=== PATIENT | female | born 1960 | race Caucasian/White ===

== ENCOUNTER 2017-12-08 06:32 | Emergency (ER) | payer MEDICAID ==
[~2017-12-08] VITALS: Ht 154.9 cm; Wt 60.0 kg
[~2017-12-08 06:32] MED LIST: METF500T4 PO; METH5TAB7 PO; VICOT PO
[2017-12-08 06:48] LABS: GLUCOSE,POINT OF CARE 116 MG/DL (70-110)
[2017-12-08 07:47] LABS: BASOPHILS % (AUTO) 0.2 % (0.0-2.0); EOSINOPHILS % (AUTO) 1.3 % (1.0-6.0); HEMATOCRIT 44.6 % (36-46); HEMOGLOBIN 15.6 g/dL (12.0-16.0); LYMPHOCYTES # (AUTO) 1.6 K/uL (1.0-4.8); LYMPHOCYTES % (AUTO) 29.3 % (22.0-44.0); MEAN CORPUSCULAR VOLUME 89 fL (80-100); MONOCYTES # (AUTO) 0.3 K/uL (0.1-1.0); MONOCYTES % (AUTO) 6.4 % (2.0-9.0); NEUTROPHILS # (AUTO) 3.4 K/uL (1.8-7.7); NEUTROPHILS % (AUTO) 62.8 % (40.0-70.0); PLATELET COUNT (AUTO) 247 K/uL (150-450); RED BLOOD CELL COUNT(AUTO) 5.03 MIL/uL (4.00-5.20); RED CELL DISTRIBUTION WIDTH 13.5 % (11.5-14.5)
[2017-12-08 07:57] LABS: INR 0.9 (0.9-1.1); PROTHROMBIN TIME 9.8 SEC (9.4-11.6)
[2017-12-08 07:58] LABS: ANION GAP 8 mmol/L (8-16); CALCIUM, TOTAL 9.1 mg/dL (8.8-10.5); CARBON DIOXIDE 28 mmol/L (22-29); CHLORIDE 105 mmol/L (98-107); CREATININE 0.56 mg/dL (0.60-1.30); GLOMERULAR FILTR. RATE CALC > 60 mL/min (>60); GLUCOSE,RANDOM 160 mg/dL (70-110); POTASSIUM 3.4 mmol/L (3.5-5.1); SODIUM SERUM 141 mmol/L (136-145); UREA NITROGEN, BLOOD 16 mg/dL (7-18)
[2017-12-08 08:04] LABS: ALANINE AMINOTRANSFERASE 33 U/L (12-78); ALBUMIN 3.9 g/dL (3.4-5.0); ALKALINE PHOSPHATASE 107 U/L (46-116); ASPARTATE AMINOTRANSFERASE 21 U/L (15-37); BILIRUBIN,TOTAL 0.4 mg/dL (0.1-1.0); TOTAL PROTEIN, SERUM 7.9 g/dL (6.4-8.2)
[2017-12-08 08:14] LABS: B-TYPE NATRIURETIC PEPTIDE 35 pg/mL (0-100)
[2017-12-08 08:14] LABS: BILIRUBIN,URINE NEGATIVE (NEGATIVE); GLUCOSE, URINE (UA) NEGATIVE (NEGATIVE); KETONES,URINE NEGATIVE (NEGATIVE); LEUKOCYTE ESTERASE ,URINE NEGATIVE (NEGATIVE); NITRATE,URINE NEGATIVE (NEGATIVE); OCCULT BLOOD,URINE TRACE (NEGATIVE); PH,URINE 6.5 (5.0-8.0); PROTEIN,URINE NEGATIVE (NEGATIVE); UROBILINOGEN,URINE 0.2 mg/dL (<=1.0)
[2017-12-08 08:20] LABS: APPEARANCE,URINE HAZY (CLEAR)
[2017-12-08 08:21] LABS: BACTERIA,URINE Rare /HPF (None Seen); RBC,URINE 0-2 /HPF (0-2); SQUAMOUS EPITHELIAL CELL,UR Rare /LPF (None Seen); WBC,URINE None Seen /HPF (0-5)
[2017-12-08] MEDS ORDERED: SODIUM CHLORIDE 0.9% 1,000 ML IV ONE (08:45)
[2017-12-08] MEDS ORDERED: MECLIZINE HCL 25 MG TABLET PO ONE (08:45)
[2017-12-08 12:12] VITALS: BP 150/68
== END 2017-12-08 12:23 | disposition home or self-care (01) ==
LOC: EMS 06:32
DX: R42 Dizziness and giddiness (principal); E05.90 Thyrotoxicosis, unspecified without thyrotoxic crisis or storm
CPT/HCPCS: 36415; 71045; 80053; 81001; 82962; 83880; 84484; 85025; 85610; 85730; 93005; 99285; J7030

== ENCOUNTER 2020-12-21 09:52 | Emergency (ER) | payer MEDICAID ==
[~2020-12-21] VITALS: Ht 162.6 cm; Wt 59.1 kg
[~2020-12-21 09:52] MED LIST changes: -METF500T4 PO; -METH5TAB7 PO; +METHI5 PO; -VICOT PO
[2020-12-21] MEDS ORDERED: POVIDONE-IODINE 10% 15 ML SOLUTION UD TP ONE (11:45)
[2020-12-21] MEDS ORDERED: LIDOCAINE 1% 10 ML VIAL IARTIC ONE (11:45)
[2020-12-21 12:58] LABS: SPECIMENTYPE,BODY FLUID SYNOVIAL
[2020-12-21] MEDS ORDERED: NAPROXEN 250 MG TABLET PO ONE (13:45)
[2020-12-21 13:56] LABS: APPEARANCE,UNSPUN,BODY FLUID CLOUDY (CLEAR)
[2020-12-21 13:57] LABS: APPEARANCE,SPUN,BODY FLUID HAZY (CLEAR); COLOR,BODY FLUID PINK (LT YELLOW); TOTAL VOLUME,BODY FLUID 30 mL
[2020-12-21 14:12] LABS: WBC, BODY FLUID 1825 /cu. mm.
[2020-12-21 14:13] LABS: BASOPHILS,BODY FLUID 0 %; EOSINOPHILS,BF (ANAL) 0 %; LYMPHOCYTES,BODY FLUID 13 %; MONOCYTES,BODY FLUID 6 %; NEUTROPHILS,BODY FLUID 81 %
[2020-12-21 14:16] LABS: OTHER CELLS,BODY FLUID 0
[2020-12-21 14:21] LABS: CRYSTALS, SYNOVIAL FLUID None Seen (None Seen)
[2020-12-21 14:27] VITALS: BP 129/68
== END 2020-12-21 14:50 | disposition home or self-care (01) ==
LOC: EMS 10:10
DX: M13.861 Other specified arthritis, right knee (principal); M25.461 Effusion, right knee
CPT/HCPCS: 20610; 73562; 82945; 84157; 84560; 87070; 87205; 89051; 89060; 99285; J3490

== ENCOUNTER 2022-07-31 10:18 | Emergency (ER) | payer MEDICAID, OTHER ==
[~2022-07-31] VITALS: Ht 157.5 cm; Wt 56.4 kg
[2022-07-31] MEDS ORDERED: LIDOCAINE 1% 10 ML VIAL SQ ONE (12:45)
[2022-07-31] MEDS ORDERED: HYDROmorphone HCL 2 MG/ML SYRINGE IM ONE (12:45)
[2022-07-31] MEDS ORDERED: ONDANSETRON HCL 4 MG/2 ML VIAL IM ONE (12:45)
[2022-07-31] MEDS ORDERED: ONDANSETRON HCL 4 MG/2 ML VIAL IVP ONE (13:45)
[2022-07-31] MEDS ORDERED: HYDROmorphone HCL 2 MG/ML SYRINGE IVP ONE (13:45)
[2022-07-31] MEDS ORDERED: HYDROCODONE/ACETAMINOPHEN 5-325 MG TABLET PO ONE (14:45)
[2022-07-31 15:00] VITALS: BP 128/64
[2022-07-31 15:03] LABS: SPECIMENTYPE,BODY FLUID ASP
[2022-07-31] MEDS ORDERED: IBUP-1554 PO (16:55)
[2022-07-31] MEDS ORDERED: HYDR-4723 PO (16:55)
[2022-07-31 18:05] LABS: APPEARANCE,UNSPUN,BODY FLUID TURBID (CLEAR)
[2022-07-31 18:48] LABS: COLOR,BODY FLUID AMBER (LT YELLOW); LYMPHOCYTES,BODY FLUID 1 %; MONOCYTES,BODY FLUID 9 %; NEUTROPHILS,BODY FLUID 90 %; TOTAL VOLUME,BODY FLUID 22 mL; WBC, BODY FLUID 2535 /cu. mm.
[2022-07-31 18:49] LABS: BASOPHILS,BODY FLUID 0 %; EOSINOPHILS,BF (ANAL) 0 %
[2022-07-31 19:02] LABS: APPEARANCE,SPUN,BODY FLUID CLOUDY (CLEAR)
== END 2022-07-31 17:50 | disposition home or self-care (01) ==
LOC: EMS 11:01
DX: M25.561 Pain in right knee (principal); E03.9 Hypothyroidism, unspecified; D25.9 Leiomyoma of uterus, unspecified; M17.11 Unilateral primary osteoarthritis, right knee; M25.461 Effusion, right knee
CPT/HCPCS: 99284; 10160; 96374; 29505; 96375; 87205; 89051; 87075; 87070; 73562; J1170; J2405; J3490

== ENCOUNTER 2023-01-22 04:01 | Emergency (ER) | payer OTHER ==
[~2023-01-22] VITALS: Ht 157.5 cm; Wt 65.0 kg
[~2023-01-22 04:01] MED LIST changes: +HYDR-4723 PO; +IBUP-1554 PO
[2023-01-22 04:43] LABS: BASOPHILS % (AUTO) 0.8 % (0.0-2.0); EOSINOPHILS % (AUTO) 1.2 % (1.0-6.0); HEMATOCRIT 43.3 % (36-46); HEMOGLOBIN 14.9 g/dL (12.0-16.0); LYMPHOCYTES % (AUTO) 34.2 % (22.0-44.0); MEAN CORPUSCULAR HEMOGLOBIN 31.1 pg (26.0-34.0); MEAN CORPUSCULAR HGB CONC 34.5 G/dL (31.0-37.0); MEAN CORPUSCULAR VOLUME 90 fL (80-100); MONOCYTES # (AUTO) 0.6 K/uL (0.1-1.0); MONOCYTES % (AUTO) 9.4 % (2.0-9.0); NEUTROPHILS # (AUTO) 3.2 K/uL (1.8-7.7); NEUTROPHILS % (AUTO) 54.4 % (40.0-70.0); PLATELET COUNT (AUTO) 250 K/uL (150-450); RED CELL DISTRIBUTION WIDTH 14.4 % (11.5-14.5)
[2023-01-22 04:47] VITALS: BP 150/90
[2023-01-22 04:51] LABS: ANION GAP 11 mmol/L (8-16); CALCIUM, TOTAL 8.8 mg/dL (8.8-10.5); CARBON DIOXIDE 27 mmol/L (22-29); CHLORIDE 101 mmol/L (98-107); CREATININE 0.71 mg/dL (0.60-1.30); GLOMERULAR FILTR. RATE CALC > 60 mL/min (>60); GLUCOSE,RANDOM 129 mg/dL (70-110); POTASSIUM 3.8 mmol/L (3.5-5.1); SODIUM SERUM 139 mmol/L (136-145)
[2023-01-22 04:56] LABS: ALANINE AMINOTRANSFERASE 23 U/L (12-78); ALBUMIN 4.1 g/dL (3.4-5.0); ALKALINE PHOSPHATASE 122 U/L (46-116); ASPARTATE AMINOTRANSFERASE 21 U/L (15-37); BILIRUBIN,TOTAL 0.3 mg/dL (0.1-1.0); TOTAL PROTEIN, SERUM 7.6 g/dL (6.4-8.2)
[2023-01-22] MEDS ORDERED: LORazepam 1 MG TABLET PO ONE (05:15)
[2023-01-22] MEDS ORDERED: ACETAMINOPHEN 500 MG TABLET PO ONE (05:15)
[2023-01-22 05:26] LABS: FREE T4 (FREE THYROXINE) 0.99 ng/dL (0.76-1.46); THYROID STIMULATING HORMONE 2.31 uIU/mL (0.36-3.74)
[2023-01-22] MEDS ORDERED: DIPH50CA37 PO (05:56)
== END 2023-01-22 06:40 | disposition home or self-care (01) ==
LOC: EMS 04:02
DX: R00.2 Palpitations (principal); E05.90 Thyrotoxicosis, unspecified without thyrotoxic crisis or storm; F41.9 Anxiety disorder, unspecified; G47.00 Insomnia, unspecified; Z98.890 Other specified postprocedural states
CPT/HCPCS: 99284; 80053; 84439; 84443; 84484; 85025; 93005; G0480

== ENCOUNTER 2023-01-27 13:37 | Emergency (ER) | payer OTHER ==
[~2023-01-27] VITALS: Ht 154.9 cm; Wt 58.2 kg
[~2023-01-27 13:37] MED LIST changes: +DIPH50CA37 PO
[2023-01-27 13:42] VITALS: TEMP 99.8
[2023-01-27 14:59] LABS: BASOPHILS % (AUTO) 0.5 % (0.0-2.0); EOSINOPHILS % (AUTO) 0.6 % (1.0-6.0); HEMATOCRIT 43.8 % (36-46); HEMOGLOBIN 14.7 g/dL (12.0-16.0); LYMPHOCYTES # (AUTO) 1.5 K/uL (1.0-4.8); LYMPHOCYTES % (AUTO) 27.6 % (22.0-44.0); MEAN CORPUSCULAR HEMOGLOBIN 30.4 pg (26.0-34.0); MEAN CORPUSCULAR HGB CONC 33.7 G/dL (31.0-37.0); MEAN CORPUSCULAR VOLUME 90 fL (80-100); MONOCYTES # (AUTO) 0.3 K/uL (0.1-1.0); MONOCYTES % (AUTO) 6.2 % (2.0-9.0); NEUTROPHILS # (AUTO) 3.6 K/uL (1.8-7.7); NEUTROPHILS % (AUTO) 65.1 % (40.0-70.0); PLATELET COUNT (AUTO) 265 K/uL (150-450); RED BLOOD CELL COUNT(AUTO) 4.84 MIL/uL (4.00-5.20); RED CELL DISTRIBUTION WIDTH 14.3 % (11.5-14.5)
[2023-01-27 15:06] LABS: ANION GAP 9 mmol/L (8-16); CARBON DIOXIDE 25 mmol/L (22-29); CHLORIDE 105 mmol/L (98-107); CREATININE 0.43 mg/dL (0.60-1.30); GLOMERULAR FILTR. RATE CALC > 60 mL/min (>60); GLUCOSE,RANDOM 138 mg/dL (70-110); POTASSIUM 3.8 mmol/L (3.5-5.1); SODIUM SERUM 139 mmol/L (136-145)
[2023-01-27 15:23] VITALS: BP 143/76; PULSE 70; RESP 18
== END 2023-01-27 16:35 | disposition home or self-care (01) ==
LOC: EMS 13:39
DX: R42 Dizziness and giddiness (principal); E03.9 Hypothyroidism, unspecified; Z98.890 Other specified postprocedural states
CPT/HCPCS: 71045; 80048; 85025; 93005; 99285; 36415-L1; 36415-TC